=== PATIENT | female | born 1945 | race Caucasian/White ===

== ENCOUNTER 2018-03-17 19:30 | Inpatient (IN) | payer MEDICARE, OTHER, MEDICAID ==
[2018-03-17] MEDS: ONDANSETRON 4 MG INJ IV ×2 (19:56→22:25)
[2018-03-17] MEDS: morphine 4 MG/ML VIAL IV ×2 (19:56→22:25)
[2018-03-17 21:55] LABS: ADD MAN DIFF? NO
[2018-03-17 21:59] LABS: BASOPHIL # 0.1 10^3/ul (0.0-0.1); BASOPHILS % 0.7 % (0.0-2.0); EOSINOPHILS # 0.1 10^3/ul (0.0-0.5); HEMATOCRIT 38.4 % (37.0-47.0); HEMOGLOBIN 13.1 g/dl (12.0-16.0); LYMPHOCYTES # 2.5 10^3/ul (0.8-2.9); LYMPHOCYTES % 34.5 % (15.0-51.0); MEAN CORPUSCULAR HEMOGLOBIN 30.8 pg (29.0-33.0); MEAN CORPUSCULAR HGB CONC 34.1 g/dl (32.0-37.0); MEAN CORPUSCULAR VOLUME 90.1 fl (82.0-101.0); MEAN PLATELET VOLUME 11.8 fl (7.4-10.4); MONOCYTE # 0.4 10^3/ul (0.3-0.9); MONOCYTES % 5.9 % (0.0-11.0); NEUTROPHIL # 4.2 10^3/ul (1.6-7.5); NEUTROPHILS % 56.8 % (39.0-77.0); PLATELET COUNT 210 10^3/UL (140-415); RED BLOOD COUNT 4.26 10^6/ul (4.20-5.40); RED CELL DISTRIBUTION WIDTH 13.2 % (11.5-14.5)
[2018-03-17 21:59] LABS: WHITE BLOOD COUNT 7.3 10^3/ul (4.8-10.8)
[2018-03-17] MEDS ORDERED: ACETAMINOPHEN 325 MG TAB PO (22:00)
[2018-03-17 22:23] LABS: ANION GAP 16 (8-16); BLOOD UREA NITROGEN 27 mg/dl (7-20); CALCIUM 9.3 mg/dl (8.4-10.2); CARBON DIOXIDE 24 mmol/L (21-31); CHLORIDE 101 mmol/L (97-110); CREATININE 0.57 mg/dl (0.44-1.00); GLUCOSE 290 mg/dl (70-220); INR 0.89; PROTIME 12.1 Sec (11.9-14.9); PT RATIO 0.9; SODIUM 137 mmol/L (135-144)
[2018-03-17 22:24] LABS: PARTIAL THROMBOPLASTIN TIME 24.7 Sec (25.0-35.0)
[2018-03-17] MEDS ORDERED: NACL 0.9% 3 ML SYG IV (23:30)
[2018-03-17] MEDS ORDERED: ACETAMINOPHEN 650 MG SUPP PR (23:30)
[2018-03-17] MEDS ORDERED: HYDROmorphONE 0.5 MG/0.5 ML SYG IV (23:30)
[2018-03-18] MEDS: DEXTROSE 5%-0.45% NACL 1,000 ML IV (00:19)
[2018-03-18] MEDS: ACETAMINOPHEN 1000MG/100ML IV 100 ML IVPB ×4 (00:19→17:26)
[2018-03-18] MEDS: INSULIN ASPART [NOVOLOG] 3 ML PEN SC ×6 (00:47→20:43)
[2018-03-18] MEDS ORDERED: GLUCOSE GEL 15 GRAM TUBE PO ×2 (02:00)
[2018-03-18] MEDS ORDERED: GLUCOSE GEL 15 GRAM TUBE BUCCAL (02:00)
[2018-03-18] MEDS ORDERED: DEXTROSE 50% 50 ML SYRINGE IV ×2 (02:00)
[2018-03-18] MEDS: ACCU-CHEK XX (02:00)
[2018-03-18] MEDS ORDERED: GLUCAGON 1 MG INJ IM (02:00)
[2018-03-18] MEDS: SOD CHLORIDE 0.9% 1,000 ML IV ×2 (02:40→17:26)
[2018-03-18] MEDS: KETOROLAC 30 MG INJ IV ×2 (04:40→10:43)
[2018-03-18 06:21] LABS: ADD MAN DIFF? NO
[2018-03-18 06:26] LABS: BASOPHILS % 0.3 % (0.0-2.0); HEMATOCRIT 37.2 % (37.0-47.0); HEMOGLOBIN 12.6 g/dl (12.0-16.0); LYMPHOCYTES # 1.1 10^3/ul (0.8-2.9); LYMPHOCYTES % 13.5 % (15.0-51.0); MEAN CORPUSCULAR HEMOGLOBIN 30.3 pg (29.0-33.0); MEAN CORPUSCULAR HGB CONC 33.9 g/dl (32.0-37.0); MEAN CORPUSCULAR VOLUME 89.4 fl (82.0-101.0); MEAN PLATELET VOLUME 11.6 fl (7.4-10.4); MONOCYTE # 0.4 10^3/ul (0.3-0.9); MONOCYTES % 5.5 % (0.0-11.0); NEUTROPHIL # 6.4 10^3/ul (1.6-7.5); NEUTROPHILS % 80.2 % (39.0-77.0); PLATELET COUNT 185 10^3/UL (140-415); RED BLOOD COUNT 4.16 10^6/ul (4.20-5.40); RED CELL DISTRIBUTION WIDTH 13.1 % (11.5-14.5)
[2018-03-18 07:27] LABS: THYROID STIMULATING HORMONE 0.888 MIU/L (0.465-4.680)
[2018-03-18 07:33] LABS: ALANINE AMINOTRANSFERASE 33 IU/L (13-69); ALBUMIN 3.3 g/dl (3.3-4.9); ALBUMIN/GLOBULIN RATIO 1.13; ALKALINE PHOSPHATASE 108 IU/L (42-121); ANION GAP 15 (8-16); ASPARTATE AMINO TRANSFERASE 25 IU/L (15-46); BILIRUBIN,INDIRECT 0.3 mg/dl (0-1.1); BILIRUBIN,TOTAL 0.3 mg/dl (0.2-1.3); BLOOD UREA NITROGEN 20 mg/dl (7-20); CALCIUM 8.8 mg/dl (8.4-10.2); CARBON DIOXIDE 24 mmol/L (21-31); CHLORIDE 101 mmol/L (97-110); CHOL/HDL RATIO 3.7 RATIO; CHOLESTEROL 205 mg/dl (100-200); CREATININE 0.54 mg/dl (0.44-1.00); GLUCOSE 358 mg/dl (70-220); HDL CHOLESTEROL 55 mg/dl (33-92); LDL CHOLESTEROL,CALCULATED 132 mg/dl; MAGNESIUM 1.6 mg/dl (1.7-2.5); POTASSIUM 4.3 mmol/L (3.5-5.1); SODIUM 136 mmol/L (135-144); TOTAL PROTEIN 6.2 g/dl (6.1-8.1); TRIGLYCERIDES 89 mg/dl (0-149)
[2018-03-18 07:33] LABS: HEMOGLOBIN A1C 10.1 % (0-5.9)
[2018-03-18] MEDS: HYDROCODONE/APAP (5/325) TAB PO ×3 (08:20→19:00)
[2018-03-18] MEDS: ASPIRIN (EC) 81 MG TAB PO (08:20)
[2018-03-18] MEDS: LISINOPRIL 20 MG TAB PO (08:21)
[2018-03-18] MEDS: ONDANSETRON 4 MG INJ IV ×3 (08:28→22:03)
[2018-03-18] MEDS: MAGNESIUM SULFATE 2 GM/50 ML 50 ML IVPB (13:28)
[2018-03-18] MEDS: METHOCARBAMOL 750 MG TAB PO ×2 (13:28→21:33)
[2018-03-18] MEDS: metFORMIN 500 MG TAB PO (19:00)
[2018-03-18] MEDS: INSULIN GLARGINE [LANtus] 3 ML PEN SC (20:41)
[2018-03-18] MEDS: ATORVASTATIN 10 MG TAB PO (20:47)
[2018-03-19] MEDS: METOCLOPRAMIDE 10 MG INJ IV ×2 (00:13→14:27)
[2018-03-19] MEDS: ACETAMINOPHEN 1000MG/100ML IV 100 ML IVPB ×4 (00:13→17:25)
[2018-03-19] MEDS: INSULIN ASPART [NOVOLOG] 3 ML PEN SC ×6 (01:00→17:27)
[2018-03-19] MEDS: HYDROCODONE/APAP (5/325) TAB PO ×4 (01:30→19:30)
[2018-03-19] MEDS: ACCU-CHEK XX (02:00)
[2018-03-19] MEDS: SOD CHLORIDE 0.9% 1,000 ML IV ×3 (05:33→20:59)
[2018-03-19 07:06] LABS: ADD MAN DIFF? NO
[2018-03-19 07:19] LABS: BASOPHILS % 0.4 % (0.0-2.0); EOSINOPHILS # 0.1 10^3/ul (0.0-0.5); HEMATOCRIT 37.2 % (37.0-47.0); HEMOGLOBIN 12.6 g/dl (12.0-16.0); LYMPHOCYTES # 1.3 10^3/ul (0.8-2.9); LYMPHOCYTES % 19.3 % (15.0-51.0); MEAN CORPUSCULAR HEMOGLOBIN 30.7 pg (29.0-33.0); MEAN CORPUSCULAR HGB CONC 33.9 g/dl (32.0-37.0); MEAN CORPUSCULAR VOLUME 90.5 fl (82.0-101.0); MEAN PLATELET VOLUME 11.3 fl (7.4-10.4); MONOCYTE # 0.6 10^3/ul (0.3-0.9); MONOCYTES % 8.3 % (0.0-11.0); NEUTROPHIL # 4.8 10^3/ul (1.6-7.5); NEUTROPHILS % 70.7 % (39.0-77.0); PLATELET COUNT 177 10^3/UL (140-415); RED BLOOD COUNT 4.11 10^6/ul (4.20-5.40); RED CELL DISTRIBUTION WIDTH 13.2 % (11.5-14.5)
[2018-03-19 07:19] LABS: WHITE BLOOD COUNT 6.8 10^3/ul (4.8-10.8)
[2018-03-19 07:33] LABS: ANION GAP 12 (8-16); BLOOD UREA NITROGEN 20 mg/dl (7-20); CALCIUM 8.2 mg/dl (8.4-10.2); CARBON DIOXIDE 26 mmol/L (21-31); CHLORIDE 104 mmol/L (97-110); CREATININE 0.56 mg/dl (0.44-1.00); GLUCOSE 200 mg/dl (70-220); SODIUM 138 mmol/L (135-144)
[2018-03-19] MEDS: LISINOPRIL 20 MG TAB PO (08:29)
[2018-03-19] MEDS: metFORMIN 500 MG TAB PO ×2 (08:30→17:25)
[2018-03-19] MEDS: ASPIRIN (EC) 81 MG TAB PO (08:30)
[2018-03-19] MEDS: BACLOFEN 10 MG TAB PO ×3 (08:30→23:04)
[2018-03-19] MEDS: ONDANSETRON 4 MG INJ IV ×2 (11:11→20:57)
[2018-03-19] MEDS: KETOROLAC 30 MG INJ IV ×2 (14:54→21:08)
[2018-03-19] MEDS: REPAGLINIDE 1 MG TAB PO (17:25)
[2018-03-19] MEDS: INSULIN GLARGINE [LANtus] 3 ML PEN SC (20:55)
[2018-03-19] MEDS: ATORVASTATIN 10 MG TAB PO (23:05)
[2018-03-20] MEDS: ACETAMINOPHEN 1000MG/100ML IV 100 ML IVPB ×4 (00:38→18:02)
[2018-03-20] MEDS: HYDROCODONE/APAP (5/325) TAB PO ×2 (01:30→07:30)
[2018-03-20] MEDS: ACCU-CHEK XX (02:00)
[2018-03-20] MEDS: ONDANSETRON 4 MG INJ IV ×2 (06:27→18:01)
[2018-03-20] MEDS: INSULIN ASPART [NOVOLOG] 3 ML PEN SC ×3 (07:30→18:05)
[2018-03-20 08:08] LABS: ADD MAN DIFF? NO
[2018-03-20] MEDS: BACLOFEN 10 MG TAB PO (08:10)
[2018-03-20] MEDS: ASPIRIN (EC) 81 MG TAB PO (08:10)
[2018-03-20] MEDS: metFORMIN 500 MG TAB PO ×2 (08:10→18:01)
[2018-03-20] MEDS: REPAGLINIDE 1 MG TAB PO ×3 (08:10→18:01)
[2018-03-20] MEDS: LISINOPRIL 20 MG TAB PO (08:12)
[2018-03-20 08:13] LABS: BASOPHILS % 0.3 % (0.0-2.0); EOSINOPHILS # 0.1 10^3/ul (0.0-0.5); EOSINOPHILS % 1.1 % (0.0-7.0); HEMATOCRIT 37.6 % (37.0-47.0); HEMOGLOBIN 12.6 g/dl (12.0-16.0); LYMPHOCYTES # 1.5 10^3/ul (0.8-2.9); LYMPHOCYTES % 19.9 % (15.0-51.0); MEAN CORPUSCULAR HEMOGLOBIN 30.7 pg (29.0-33.0); MEAN CORPUSCULAR HGB CONC 33.5 g/dl (32.0-37.0); MEAN CORPUSCULAR VOLUME 91.7 fl (82.0-101.0); MEAN PLATELET VOLUME 10.5 fl (7.4-10.4); MONOCYTE # 0.7 10^3/ul (0.3-0.9); MONOCYTES % 9.8 % (0.0-11.0); NEUTROPHIL # 5.1 10^3/ul (1.6-7.5); NEUTROPHILS % 68.5 % (39.0-77.0); PLATELET COUNT 172 10^3/UL (140-415); RED CELL DISTRIBUTION WIDTH 13.2 % (11.5-14.5)
[2018-03-20 08:13] LABS: WHITE BLOOD COUNT 7.4 10^3/ul (4.8-10.8)
[2018-03-20] MEDS: KETOROLAC 30 MG INJ IV ×3 (08:23→21:17)
[2018-03-20] MEDS: SOD CHLORIDE 0.9% 1,000 ML IV (08:27)
[2018-03-20 08:53] LABS: ANION GAP 12 (8-16); BLOOD UREA NITROGEN 13 mg/dl (7-20); CALCIUM 8.4 mg/dl (8.4-10.2); CARBON DIOXIDE 26 mmol/L (21-31); CHLORIDE 107 mmol/L (97-110); CREATININE 0.53 mg/dl (0.44-1.00); GLUCOSE 85 mg/dl (70-220); POTASSIUM 3.7 mmol/L (3.5-5.1); SODIUM 141 mmol/L (135-144)
[2018-03-20] MEDS: METHOCARBAMOL 750 MG TAB PO ×2 (12:43→22:31)
[2018-03-20] MEDS: OXYCODONE/ACETAMINOPHEN (5/325) TAB PO (18:46)
[2018-03-20] MEDS: hydrALAzine 20 MG INJ IV (20:33)
[2018-03-20] MEDS: METOCLOPRAMIDE 10 MG INJ IV (20:55)
[2018-03-20] MEDS: INSULIN GLARGINE [LANtus] 3 ML PEN SC (21:11)
[2018-03-20] MEDS: ATORVASTATIN 10 MG TAB PO (22:31)
[2018-03-21] MEDS: SOD CHLORIDE 0.9% 1,000 ML IV ×2 (00:10→16:48)
[2018-03-21] MEDS: ACETAMINOPHEN 1000MG/100ML IV 100 ML IVPB ×4 (00:11→18:00)
[2018-03-21] MEDS: ACCU-CHEK XX (02:00)
[2018-03-21 06:34] LABS: ADD MAN DIFF? NO
[2018-03-21 06:48] LABS: BASOPHILS % 0.3 % (0.0-2.0); EOSINOPHILS # 0.1 10^3/ul (0.0-0.5); EOSINOPHILS % 1.1 % (0.0-7.0); HEMATOCRIT 38.4 % (37.0-47.0); HEMOGLOBIN 12.8 g/dl (12.0-16.0); LYMPHOCYTES # 1.8 10^3/ul (0.8-2.9); LYMPHOCYTES % 26.8 % (15.0-51.0); MEAN CORPUSCULAR HEMOGLOBIN 30.4 pg (29.0-33.0); MEAN CORPUSCULAR HGB CONC 33.3 g/dl (32.0-37.0); MEAN CORPUSCULAR VOLUME 91.2 fl (82.0-101.0); MEAN PLATELET VOLUME 11.9 fl (7.4-10.4); MONOCYTE # 0.7 10^3/ul (0.3-0.9); MONOCYTES % 9.8 % (0.0-11.0); NEUTROPHIL # 4.1 10^3/ul (1.6-7.5); NEUTROPHILS % 61.7 % (39.0-77.0); PLATELET COUNT 137 10^3/UL (140-415); RED BLOOD COUNT 4.21 10^6/ul (4.20-5.40); RED CELL DISTRIBUTION WIDTH 13.1 % (11.5-14.5)
[2018-03-21 06:48] LABS: WHITE BLOOD COUNT 6.6 10^3/ul (4.8-10.8)
[2018-03-21] MEDS: ONDANSETRON 4 MG INJ IV ×2 (07:51→21:05)
[2018-03-21] MEDS: metFORMIN 500 MG TAB PO ×2 (07:54→17:59)
[2018-03-21] MEDS: REPAGLINIDE 1 MG TAB PO ×3 (07:54→17:59)
[2018-03-21] MEDS: INSULIN ASPART [NOVOLOG] 3 ML PEN SC ×3 (07:55→18:05)
[2018-03-21 08:22] LABS: ANION GAP 12 (8-16); BLOOD UREA NITROGEN 14 mg/dl (7-20); CALCIUM 8.4 mg/dl (8.4-10.2); CARBON DIOXIDE 24 mmol/L (21-31); CHLORIDE 108 mmol/L (97-110); CREATININE 0.47 mg/dl (0.44-1.00); GLUCOSE 202 mg/dl (70-220); POTASSIUM 3.9 mmol/L (3.5-5.1); SODIUM 140 mmol/L (135-144)
[2018-03-21] MEDS: LISINOPRIL 20 MG TAB PO (08:40)
[2018-03-21] MEDS: METHOCARBAMOL 750 MG TAB PO ×3 (08:40→22:57)
[2018-03-21] MEDS: ASPIRIN (EC) 81 MG TAB PO (08:40)
[2018-03-21] MEDS: KETOROLAC 30 MG INJ IV (09:16)
[2018-03-21] MEDS: DOCUSATE SODIUM 100 MG CAP PO ×2 (13:26→22:59)
[2018-03-21] MEDS: HYDROmorphONE 0.5 MG/0.5 ML SYG IV ×2 (13:32→21:06)
[2018-03-21] MEDS: INSULIN GLARGINE [LANtus] 3 ML PEN SC (21:16)
[2018-03-21] MEDS: ATORVASTATIN 10 MG TAB PO (22:57)
[2018-03-21] MEDS: METOCLOPRAMIDE 10 MG INJ IV (22:59)
[2018-03-22] MEDS: ACETAMINOPHEN 1000MG/100ML IV 100 ML IVPB ×3 (00:23→12:12)
[2018-03-22] MEDS: ACCU-CHEK XX (02:00)
[2018-03-22] MEDS: SOD CHLORIDE 0.9% 1,000 ML IV (05:56)
[2018-03-22] MEDS: ONDANSETRON 4 MG INJ IV ×3 (06:06→20:30)
[2018-03-22] MEDS: HYDROmorphONE 0.5 MG/0.5 ML SYG IV ×4 (06:06→20:30)
[2018-03-22 07:11] LABS: ADD MAN DIFF? NO
[2018-03-22 07:15] LABS: BASOPHILS % 0.4 % (0.0-2.0); EOSINOPHILS # 0.1 10^3/ul (0.0-0.5); EOSINOPHILS % 1.5 % (0.0-7.0); HEMATOCRIT 36.8 % (37.0-47.0); HEMOGLOBIN 12.3 g/dl (12.0-16.0); LYMPHOCYTES # 1.3 10^3/ul (0.8-2.9); LYMPHOCYTES % 16.6 % (15.0-51.0); MEAN CORPUSCULAR HEMOGLOBIN 30.8 pg (29.0-33.0); MEAN CORPUSCULAR HGB CONC 33.4 g/dl (32.0-37.0); MEAN PLATELET VOLUME 11.2 fl (7.4-10.4); MONOCYTE # 0.7 10^3/ul (0.3-0.9); MONOCYTES % 9.1 % (0.0-11.0); NEUTROPHIL # 5.8 10^3/ul (1.6-7.5); NEUTROPHILS % 72.2 % (39.0-77.0); PLATELET COUNT 187 10^3/UL (140-415); RED CELL DISTRIBUTION WIDTH 13.2 % (11.5-14.5)
[2018-03-22 07:44] LABS: ANION GAP 13 (8-16); BLOOD UREA NITROGEN 16 mg/dl (7-20); CALCIUM 8.7 mg/dl (8.4-10.2); CARBON DIOXIDE 26 mmol/L (21-31); CHLORIDE 105 mmol/L (97-110); GLUCOSE 146 mg/dl (70-220); POTASSIUM 4.5 mmol/L (3.5-5.1); SODIUM 139 mmol/L (135-144)
[2018-03-22] MEDS: INSULIN ASPART [NOVOLOG] 3 ML PEN SC ×3 (08:31→17:59)
[2018-03-22] MEDS: OXYCODONE/ACETAMINOPHEN (5/325) TAB PO (08:53)
[2018-03-22] MEDS: METOCLOPRAMIDE 10 MG INJ IV ×2 (08:59→15:49)
[2018-03-22] MEDS: REPAGLINIDE 2 MG TAB PO ×3 (09:47→17:35)
[2018-03-22] MEDS: METHOCARBAMOL 750 MG TAB PO ×3 (09:47→23:28)
[2018-03-22] MEDS: metFORMIN 500 MG TAB PO ×2 (09:47→18:05)
[2018-03-22] MEDS: ASPIRIN (EC) 81 MG TAB PO (09:47)
[2018-03-22] MEDS: DOCUSATE SODIUM 100 MG CAP PO ×2 (09:47→23:28)
[2018-03-22] MEDS: LISINOPRIL 20 MG TAB PO (09:48)
[2018-03-22] MEDS: hydrALAzine 20 MG INJ IV ×2 (10:54→20:07)
[2018-03-22] MEDS: AMLODIPINE 10 MG TAB PO (12:30)
[2018-03-22] MEDS ORDERED: ACETAMINOPHEN 325 MG TAB PO (12:30)
[2018-03-22] MEDS: CHLORTHALIDONE 25 MG TAB PO (15:00)
[2018-03-22] MEDS: OXYCODONE/ACETAMINOPHEN (10/325) TAB PO (15:54)
[2018-03-22] MEDS: INSULIN GLARGINE [LANtus] 3 ML PEN SC (22:11)
[2018-03-22] MEDS: ATORVASTATIN 40 MG TAB PO (23:27)
[2018-03-23] MEDS: HYDROmorphONE 0.5 MG/0.5 ML SYG IV ×6 (00:41→22:42)
[2018-03-23] MEDS: ACCU-CHEK XX (02:00)
[2018-03-23] MEDS: CHLORTHALIDONE 25 MG TAB PO (05:32)
[2018-03-23 06:19] LABS: ADD MAN DIFF? NO
[2018-03-23 06:29] LABS: BASOPHILS % 0.2 % (0.0-2.0); HEMATOCRIT 36.6 % (37.0-47.0); HEMOGLOBIN 12.3 g/dl (12.0-16.0); LYMPHOCYTES # 1.3 10^3/ul (0.8-2.9); LYMPHOCYTES % 15.7 % (15.0-51.0); MEAN CORPUSCULAR HEMOGLOBIN 30.6 pg (29.0-33.0); MEAN CORPUSCULAR HGB CONC 33.6 g/dl (32.0-37.0); MEAN PLATELET VOLUME 11.7 fl (7.4-10.4); MONOCYTE # 0.6 10^3/ul (0.3-0.9); MONOCYTES % 7.1 % (0.0-11.0); NEUTROPHIL # 6.4 10^3/ul (1.6-7.5); NEUTROPHILS % 76.6 % (39.0-77.0); PLATELET COUNT 206 10^3/UL (140-415); RED BLOOD COUNT 4.02 10^6/ul (4.20-5.40); RED CELL DISTRIBUTION WIDTH 13.4 % (11.5-14.5)
[2018-03-23 06:29] LABS: WHITE BLOOD COUNT 8.4 10^3/ul (4.8-10.8)
[2018-03-23 07:09] LABS: ANION GAP 19 (8-16); BLOOD UREA NITROGEN 18 mg/dl (7-20); CALCIUM 9.1 mg/dl (8.4-10.2); CARBON DIOXIDE 20 mmol/L (21-31); CHLORIDE 104 mmol/L (97-110); CREATININE 0.54 mg/dl (0.44-1.00); GLUCOSE 271 mg/dl (70-220); POTASSIUM 4.4 mmol/L (3.5-5.1); SODIUM 139 mmol/L (135-144)
[2018-03-23] MEDS: METHOCARBAMOL 750 MG TAB PO ×3 (08:47→20:52)
[2018-03-23] MEDS: REPAGLINIDE 2 MG TAB PO ×3 (08:47→17:32)
[2018-03-23] MEDS: BISACODYL (EC) 5 MG TAB PO (08:47)
[2018-03-23] MEDS: ASPIRIN (EC) 81 MG TAB PO (08:47)
[2018-03-23] MEDS: INSULIN ASPART [NOVOLOG] 3 ML PEN SC ×3 (08:48→17:34)
[2018-03-23] MEDS: metFORMIN 500 MG TAB PO ×2 (08:48→17:33)
[2018-03-23] MEDS: DOCUSATE SODIUM 100 MG CAP PO ×2 (08:55→20:50)
[2018-03-23] MEDS: AMLODIPINE 2.5 MG TAB PO (08:56)
[2018-03-23] MEDS: LISINOPRIL 20 MG TAB PO ×2 (08:56→20:51)
[2018-03-23] MEDS ORDERED: AMLODIPINE 10 MG TAB PO (09:00)
[2018-03-23] MEDS: ONDANSETRON 4 MG INJ IV (11:27)
[2018-03-23] MEDS: ATORVASTATIN 40 MG TAB PO (20:52)
[2018-03-23] MEDS: INSULIN GLARGINE [LANtus] 3 ML PEN SC (20:53)
[2018-03-23] MEDS: METOCLOPRAMIDE 10 MG INJ IV (20:53)
[2018-03-24] MEDS: ACCU-CHEK XX (02:00)
[2018-03-24] MEDS: HYDROmorphONE 0.5 MG/0.5 ML SYG IV ×5 (04:08→20:45)
[2018-03-24] MEDS: CHLORTHALIDONE 25 MG TAB PO (05:51)
[2018-03-24] MEDS: metFORMIN 500 MG TAB PO ×2 (08:07→17:34)
[2018-03-24] MEDS: REPAGLINIDE 2 MG TAB PO ×3 (08:07→17:33)
[2018-03-24] MEDS: METHOCARBAMOL 750 MG TAB PO ×3 (08:07→20:31)
[2018-03-24] MEDS: DOCUSATE SODIUM 100 MG CAP PO ×2 (08:07→20:31)
[2018-03-24] MEDS: ASPIRIN (EC) 81 MG TAB PO (08:07)
[2018-03-24] MEDS: AMLODIPINE 2.5 MG TAB PO (08:08)
[2018-03-24] MEDS: LISINOPRIL 20 MG TAB PO ×2 (08:08→20:32)
[2018-03-24] MEDS: INSULIN ASPART [NOVOLOG] 3 ML PEN SC ×3 (08:09→17:37)
[2018-03-24] MEDS: ONDANSETRON 4 MG INJ IV ×3 (08:11→21:02)
[2018-03-24] MEDS: BISACODYL (EC) 5 MG TAB PO (20:31)
[2018-03-24] MEDS: ATORVASTATIN 40 MG TAB PO (20:32)
[2018-03-24] MEDS: INSULIN GLARGINE [LANtus] 3 ML PEN SC (20:34)
[2018-03-24] MEDS: HEPARIN 5,000 UNIT/0.5 ML VIAL SC (20:43)
[2018-03-25] MEDS: METOCLOPRAMIDE 10 MG INJ IV ×2 (01:17→09:27)
[2018-03-25] MEDS: HYDROmorphONE 0.5 MG/0.5 ML SYG IV ×6 (01:18→21:49)
[2018-03-25] MEDS: ACCU-CHEK XX (02:00)
[2018-03-25] MEDS: ONDANSETRON 4 MG INJ IV (05:24)
[2018-03-25] MEDS: CHLORTHALIDONE 25 MG TAB PO (05:24)
[2018-03-25 05:35] LABS: ADD MAN DIFF? NO
[2018-03-25 05:38] LABS: BASOPHILS % 0.4 % (0.0-2.0); EOSINOPHILS # 0.1 10^3/ul (0.0-0.5); EOSINOPHILS % 1.8 % (0.0-7.0); HEMATOCRIT 39.2 % (37.0-47.0); HEMOGLOBIN 13.1 g/dl (12.0-16.0); LYMPHOCYTES # 2.1 10^3/ul (0.8-2.9); LYMPHOCYTES % 27.5 % (15.0-51.0); MEAN CORPUSCULAR HGB CONC 33.4 g/dl (32.0-37.0); MEAN CORPUSCULAR VOLUME 89.9 fl (82.0-101.0); MEAN PLATELET VOLUME 10.7 fl (7.4-10.4); MONOCYTE # 0.8 10^3/ul (0.3-0.9); MONOCYTES % 10.9 % (0.0-11.0); NEUTROPHIL # 4.5 10^3/ul (1.6-7.5); NEUTROPHILS % 59.1 % (39.0-77.0); PLATELET COUNT 265 10^3/UL (140-415); RED BLOOD COUNT 4.36 10^6/ul (4.20-5.40); RED CELL DISTRIBUTION WIDTH 13.1 % (11.5-14.5)
[2018-03-25 05:38] LABS: WHITE BLOOD COUNT 7.6 10^3/ul (4.8-10.8)
[2018-03-25 06:11] LABS: ANION GAP 15 (8-16); BLOOD UREA NITROGEN 18 mg/dl (7-20); CALCIUM 9.5 mg/dl (8.4-10.2); CARBON DIOXIDE 33 mmol/L (21-31); CHLORIDE 95 mmol/L (97-110); CREATININE 0.61 mg/dl (0.44-1.00); GLUCOSE 113 mg/dl (70-220); POTASSIUM 3.6 mmol/L (3.5-5.1); SODIUM 139 mmol/L (135-144)
[2018-03-25] MEDS: REPAGLINIDE 2 MG TAB PO ×3 (08:44→17:42)
[2018-03-25] MEDS: INSULIN ASPART [NOVOLOG] 3 ML PEN SC ×3 (08:44→17:44)
[2018-03-25] MEDS: ASPIRIN (EC) 81 MG TAB PO (08:49)
[2018-03-25] MEDS: metFORMIN 500 MG TAB PO ×2 (08:49→17:42)
[2018-03-25] MEDS: LISINOPRIL 20 MG TAB PO ×2 (08:50→21:50)
[2018-03-25] MEDS: AMLODIPINE 2.5 MG TAB PO (08:50)
[2018-03-25] MEDS: METHOCARBAMOL 750 MG TAB PO ×3 (08:50→21:50)
[2018-03-25] MEDS: DOCUSATE SODIUM 100 MG CAP PO ×2 (08:51→21:51)
[2018-03-25] MEDS: HEPARIN 5,000 UNIT/0.5 ML VIAL SC ×2 (08:51→22:01)
[2018-03-25] MEDS: ATORVASTATIN 40 MG TAB PO (21:51)
[2018-03-25] MEDS: INSULIN GLARGINE [LANtus] 3 ML PEN SC (22:02)
[2018-03-26] MEDS: ACCU-CHEK XX (02:00)
[2018-03-26] MEDS: HYDROmorphONE 0.5 MG/0.5 ML SYG IV ×6 (02:47→23:10)
[2018-03-26] MEDS: CHLORTHALIDONE 25 MG TAB PO (06:39)
[2018-03-26] MEDS: INSULIN ASPART [NOVOLOG] 3 ML PEN SC ×3 (08:00→17:30)
[2018-03-26] MEDS: REPAGLINIDE 2 MG TAB PO ×4 (08:02→17:35)
[2018-03-26] MEDS: metFORMIN 500 MG TAB PO ×3 (08:02→18:01)
[2018-03-26] MEDS: DOCUSATE SODIUM 100 MG CAP PO ×2 (08:31→21:00)
[2018-03-26] MEDS: LISINOPRIL 20 MG TAB PO ×2 (08:35→21:32)
[2018-03-26] MEDS: AMLODIPINE 2.5 MG TAB PO (08:35)
[2018-03-26] MEDS: METHOCARBAMOL 750 MG TAB PO ×3 (08:35→21:32)
[2018-03-26] MEDS: ASPIRIN (EC) 81 MG TAB PO (08:35)
[2018-03-26] MEDS: HEPARIN 5,000 UNIT/0.5 ML VIAL SC ×2 (08:36→21:44)
[2018-03-26] MEDS: ONDANSETRON 4 MG INJ IV ×2 (09:03→18:04)
[2018-03-26] MEDS: ATORVASTATIN 40 MG TAB PO (21:29)
[2018-03-26] MEDS: CELECOXIB 200 MG CAP PO (21:29)
[2018-03-26] MEDS: METHADONE 5 MG TAB PO (21:33)
[2018-03-26] MEDS: INSULIN GLARGINE [LANtus] 3 ML PEN SC (21:43)
[2018-03-26] MEDS: METOCLOPRAMIDE 10 MG INJ IV (21:44)
[2018-03-27] MEDS: ACCU-CHEK XX (02:00)
[2018-03-27] MEDS: METHADONE 5 MG TAB PO ×3 (04:00→20:19)
[2018-03-27 05:49] LABS: ADD MAN DIFF? NO
[2018-03-27 05:52] LABS: BASOPHILS % 0.6 % (0.0-2.0); EOSINOPHILS # 0.1 10^3/ul (0.0-0.5); EOSINOPHILS % 1.4 % (0.0-7.0); HEMATOCRIT 38.7 % (37.0-47.0); HEMOGLOBIN 13.3 g/dl (12.0-16.0); LYMPHOCYTES # 2.3 10^3/ul (0.8-2.9); LYMPHOCYTES % 32.8 % (15.0-51.0); MEAN CORPUSCULAR HGB CONC 34.4 g/dl (32.0-37.0); MEAN CORPUSCULAR VOLUME 90.2 fl (82.0-101.0); MEAN PLATELET VOLUME 10.8 fl (7.4-10.4); MONOCYTE # 0.8 10^3/ul (0.3-0.9); MONOCYTES % 10.7 % (0.0-11.0); NEUTROPHIL # 3.8 10^3/ul (1.6-7.5); NEUTROPHILS % 54.1 % (39.0-77.0); PLATELET COUNT 352 10^3/UL (140-415); RED BLOOD COUNT 4.29 10^6/ul (4.20-5.40); RED CELL DISTRIBUTION WIDTH 13.3 % (11.5-14.5)
[2018-03-27 05:52] LABS: WHITE BLOOD COUNT 7.1 10^3/ul (4.8-10.8)
[2018-03-27 06:35] LABS: ANION GAP 15 (8-16); BLOOD UREA NITROGEN 28 mg/dl (7-20); CALCIUM 9.5 mg/dl (8.4-10.2); CARBON DIOXIDE 31 mmol/L (21-31); CHLORIDE 93 mmol/L (97-110); CREATININE 0.72 mg/dl (0.44-1.00); GLUCOSE 216 mg/dl (70-220); POTASSIUM 3.7 mmol/L (3.5-5.1); SODIUM 135 mmol/L (135-144)
[2018-03-27] MEDS: CHLORTHALIDONE 25 MG TAB PO (06:45)
[2018-03-27] MEDS: HYDROCODONE/APAP (10/325) TAB PO ×3 (06:58→17:45)
[2018-03-27] MEDS: REPAGLINIDE 2 MG TAB PO ×3 (08:09→17:14)
[2018-03-27] MEDS: metFORMIN 500 MG TAB PO ×2 (08:09→17:14)
[2018-03-27] MEDS: INSULIN ASPART [NOVOLOG] 3 ML PEN SC ×3 (08:10→17:18)
[2018-03-27] MEDS: LISINOPRIL 20 MG TAB PO ×2 (10:02→20:18)
[2018-03-27] MEDS: DOCUSATE SODIUM 100 MG CAP PO ×2 (10:02→20:20)
[2018-03-27] MEDS: CELECOXIB 200 MG CAP PO ×2 (10:03→20:17)
[2018-03-27] MEDS: METHOCARBAMOL 750 MG TAB PO ×3 (10:03→20:18)
[2018-03-27] MEDS: ASPIRIN (EC) 81 MG TAB PO (10:03)
[2018-03-27] MEDS: AMLODIPINE 2.5 MG TAB PO (10:04)
[2018-03-27] MEDS: HEPARIN 5,000 UNIT/0.5 ML VIAL SC ×2 (10:07→20:28)
[2018-03-27] MEDS: ONDANSETRON 4 MG INJ IV (11:43)
[2018-03-27] MEDS: LIDOCAINE 5% PATCH TD (17:13)
[2018-03-27] MEDS: ATORVASTATIN 40 MG TAB PO (20:19)
[2018-03-27] MEDS: INSULIN GLARGINE [LANtus] 3 ML PEN SC (20:35)
[2018-03-28] MEDS: ACCU-CHEK XX (02:00)
[2018-03-28] MEDS: METHADONE 5 MG TAB PO ×3 (04:17→20:14)
[2018-03-28] MEDS: CHLORTHALIDONE 25 MG TAB PO (06:04)
[2018-03-28] MEDS: HYDROCODONE/APAP (10/325) TAB PO ×2 (06:04→11:21)
[2018-03-28] MEDS: INSULIN ASPART [NOVOLOG] 3 ML PEN SC ×3 (07:30→17:26)
[2018-03-28] MEDS: DOCUSATE SODIUM 100 MG CAP PO ×3 (09:00→21:00)
[2018-03-28] MEDS: REPAGLINIDE 2 MG TAB PO ×3 (09:05→17:26)
[2018-03-28] MEDS: CELECOXIB 200 MG CAP PO ×2 (09:05→21:42)
[2018-03-28] MEDS: ASPIRIN (EC) 81 MG TAB PO (09:05)
[2018-03-28] MEDS: metFORMIN 500 MG TAB PO ×2 (09:05→17:26)
[2018-03-28] MEDS: METHOCARBAMOL 750 MG TAB PO ×3 (09:05→21:42)
[2018-03-28] MEDS: LISINOPRIL 20 MG TAB PO ×2 (09:06→21:42)
[2018-03-28] MEDS: LIDOCAINE 5% PATCH TD (09:07)
[2018-03-28] MEDS: AMLODIPINE 2.5 MG TAB PO (09:07)
[2018-03-28] MEDS: HEPARIN 5,000 UNIT/0.5 ML VIAL SC ×2 (09:08→20:46)
[2018-03-28] MEDS: ONDANSETRON 4 MG INJ IV ×2 (10:04→18:02)
[2018-03-28] MEDS: METOCLOPRAMIDE 10 MG INJ IV (20:14)
[2018-03-28] MEDS: INSULIN GLARGINE [LANtus] 3 ML PEN SC ×2 (20:34→20:45)
[2018-03-28] MEDS: DEXTROSE 5%-0.45% NACL 1,000 ML IV (20:45)
[2018-03-28] MEDS: ATORVASTATIN 40 MG TAB PO (21:42)
[2018-03-29] MEDS: SOD CHLORIDE 0.9% 1,000 ML IV (02:05)
[2018-03-29] MEDS: ACCU-CHEK XX (02:05)
[2018-03-29] MEDS: METHADONE 5 MG TAB PO ×3 (04:14→22:05)
[2018-03-29] MEDS: CHLORTHALIDONE 25 MG TAB PO (05:34)
[2018-03-29] MEDS: INSULIN ASPART [NOVOLOG] 3 ML PEN SC ×3 (07:30→17:35)
[2018-03-29] MEDS: REPAGLINIDE 2 MG TAB PO ×3 (08:26→17:35)
[2018-03-29] MEDS: metFORMIN 500 MG TAB PO ×2 (08:26→17:47)
[2018-03-29] MEDS: DOCUSATE SODIUM 100 MG CAP PO ×2 (09:00→21:00)
[2018-03-29] MEDS: LIDOCAINE 5% PATCH TD (12:20)
[2018-03-29] MEDS: LISINOPRIL 20 MG TAB PO ×2 (12:20→22:04)
[2018-03-29] MEDS: ASPIRIN (EC) 81 MG TAB PO (12:20)
[2018-03-29] MEDS: AMLODIPINE 2.5 MG TAB PO (12:21)
[2018-03-29] MEDS: HEPARIN 5,000 UNIT/0.5 ML VIAL SC ×2 (12:22→22:02)
[2018-03-29] MEDS: ONDANSETRON 4 MG INJ IV (18:55)
[2018-03-29] MEDS: INSULIN GLARGINE [LANtus] 3 ML PEN SC (22:02)
[2018-03-29] MEDS: ATORVASTATIN 40 MG TAB PO (22:04)
[2018-03-29] MEDS: METOCLOPRAMIDE 10 MG INJ IV (22:13)
[2018-03-30] MEDS: ACCU-CHEK XX (02:00)
[2018-03-30] MEDS: METHADONE 5 MG TAB PO ×2 (05:08→12:01)
[2018-03-30] MEDS: CHLORTHALIDONE 25 MG TAB PO (05:09)
[2018-03-30] MEDS: INSULIN ASPART [NOVOLOG] 3 ML PEN SC ×2 (07:30→12:02)
[2018-03-30] MEDS: LIDOCAINE 5% PATCH TD (08:42)
[2018-03-30] MEDS: ASPIRIN (EC) 81 MG TAB PO (08:43)
[2018-03-30] MEDS: HEPARIN 5,000 UNIT/0.5 ML VIAL SC (08:43)
[2018-03-30] MEDS: DOCUSATE SODIUM 100 MG CAP PO ×2 (08:43→08:59)
[2018-03-30] MEDS: metFORMIN 500 MG TAB PO (08:44)
[2018-03-30] MEDS: REPAGLINIDE 2 MG TAB PO ×2 (08:44→12:01)
[2018-03-30] MEDS: AMLODIPINE 2.5 MG TAB PO (08:44)
[2018-03-30] MEDS: LISINOPRIL 20 MG TAB PO (08:45)
[2018-03-30] MEDS: ONDANSETRON 4 MG INJ IV (10:39)
[2018-03-30] MEDS: traMADol 50 MG TAB PO (10:40)
== END 2018-03-30 16:56 | DRG 552 ==
LOC: E/R 19:30 → PP2 21:53
DX: S32.039A Unspecified fracture of third lumbar vertebra, initial encounter for closed fracture (principal); E11.9 Type 2 diabetes mellitus without complications; I10 Essential (primary) hypertension; W19.XXXA Unspecified fall, initial encounter; E78.5 Hyperlipidemia, unspecified; M25.552 Pain in left hip
CPT/HCPCS: 72131; 72148; 72192; 73510; 80048; 80053; 80061; 82306; 82962; 83036; 83735; 84443; 85025; 85610; 85730; 96374; 96375; 96376; 97110; 97116; 97162; 97530; 99285-25